=== PATIENT | female | born 1995 | race Two or more races ===

== ENCOUNTER 2024-03-10 18:02 | Emergency (ER) | payer OTHER ==
[2024-03-10 18:06] VITALS: RESP 20
[2024-03-10] MEDS: DEXAMETHASONE SOD PHOSPHATE 10 MG/ML 1 ML VIAL IM STA (18:55)
[2024-03-10] MEDS: LIDOCAINE VISCOUS 2% 15 ML CUP PO ONE (18:56)
--- NOTE | 2024-03-10 19:36 | ED ---
ENT HPI - General Chief complaint: ENT Stated complaint: Sore throat Time Seen by Provider: 03/10/24 18:08 Source: patient Mode of arrival: ambulatory Limitations: no limitations - History of Present Illness Initial comments: 29-year-old female presented with chief complaint of sore throat. Patient is concerned because she has significantly enlarged lymph nodes in her neck. She is having a lot of pain with swallowing, no difficulty breathing or dysphagia. Cough or congestion. No nausea vomiting or abdominal pain. No drooling or voice changes. She was seen at urgent care yesterday she had a negative strep swab, however she was still prescribed amoxicillin and is currently taking that. No fever. - Related Data Previous Rx's Medication Instructions Recorded methylPREDNISolone Dose Pack 4 mg PO DIRECTED #1 packet 03/10/24 [Medrol Dose Pack] Allergies Allergy/AdvReac Type Severity Reaction Status Date / Time No Known Allergies Allergy Verified 03/10/24 18:06 Review of Systems ROS Statement: Those systems with pertinent positive or pertinent negative responses have been documented in the HPI. ROS Other: All systems not noted in ROS Statement are negative. Past Medical History Past Medical History: No Reported History History of Any Multi-Drug Resistant Organisms: None Reported Past Surgical History: No Surgical Hx Reported Past Psychological History: No Psychological Hx Reported Smoking Status: Never smoker Past Alcohol Use History: Occasional Past Drug Use History: None Reported General Exam Limitations: no limitations General appearance: alert, in no apparent distress Head exam: Present: atraumatic, normocephalic, normal inspection Eye exam: Present: normal appearance, EOMI Expanded Throat exam: tonsillar erythema, tonsillomegaly, tonsillar exudate Neck exam: Present: normal inspection, lymphadenopathy. Absent: meningismus Respiratory exam: Absent: respiratory distress, stridor Cardiovascular Exam: Present: regular rate Neurological exam: Present: alert, oriented X3 Psychiatric exam: Present: normal affect, normal mood Skin exam: Present: warm, dry Course Vital Signs 03/10/24 03/10/24 18:04 21:54 Temperature 98.5 F 99.0 F Pulse Rate 85 78 Respiratory 20 20 Rate Blood Pressure 134/76 104/62 O2 Sat by Pulse 96 97 Oximetry Medical Decision Making - Medical Decision Making Was pt. sent in by a medical professional or institution (, PA, SPRING [employer]ING MACHINE [employer]TER, urgent care, hospital, or senior living...) When possible be specific @ -No Did you speak to anyone other than the patient for history (EMS, parent, family, police, friend...)? What history was obtained from this source @ -No Did you review nursing and triage notes (agree or disagree)? Why? @ -I reviewed and agree with nursing and triage notes Were old charts reviewed (outside hosp., previous admission, EMS record, old EKG, old radiological studies, urgent care reports/EKG's, senior living records)? Report findings @ -No old charts were reviewed Differential Diagnosis (chest pain, altered mental status, abdominal pain women, abdominal pain men, vaginal bleeding, weakness, fever, dyspnea, syncope, headache, dizziness, GI bleed, back pain, seizure, CVA, palpatations, mental health, musculoskeletal)? @ -Differential includes viral pharyngitis, strep pharyngitis, peritonsillar abscess, retropharyngeal abscess, not an all-inclusive list EKG interpreted by me (3pts min.). @ -As above X-rays interpreted by me (1pt min.). @ -X-ray shows some mild prominence of the tonsils, otherwise soft tissue neck is unremarkable CT interpreted by me (1pt min.). @ -None done U/S interpreted by me (1pt. min.). @ -None done What testing was considered but not performed or refused? (CT, X-rays, U/S, labs)? Why? @ -None What meds were considered but not given or refused? Why? @ -None Did you discuss the management of the patient with other professionals (professionals i.e. , PA, [employer]ING [employer]ING MACHINE SETTER, lab, RT, psych nurse, group social worker, claim clinician, teacher, senior escrow officer, pillowcase folder)? Give summary @ -No Was smoking cessation discussed for >3mins.? @ -No Was critical care preformed (if so, how long)? @ -No Were there social determinants of health that impacted care today? How? (Homelessness, low income, unemployed, alcoholism, drug addiction, transportation, low edu. Level, literacy, decrease access to med. care, fdc, rehab)? @ -No Was there de-escalation of care discussed even if they declined (Discuss DNR or withdrawal of care, Hospice)? DNR status @ -No What co-morbidities impacted this encounter? (DM, HTN, Smoking, COPD, CAD, Cancer, CVA, ARF, Chemo, Hep., AIDS, mental health diagnosis, sleep apnea, morbid obesity)? @ -None Was patient admitted / discharged? Hospital course, mention meds given and route, prescriptions, significant lab abnormalities, going to OR and other p ertinent info. @ -29-year-old female presenting with chief complaint of sore throat. She is also complaining that the lymph nodes in her neck are quite enlarged and uncomfortable. History and physical examination are conducted. Patient has enlarged and erythematous tonsils with exudate bilaterally. No midline shift. No stridor. No drooling or hot potato voice. She is given viscous lidocaine and Decadron. Heterophile is negative. She is negative for influenza, RSV, COVID, group A strep. Soft tissue neck x-ray is obtained which shows some prominence of the tonsils, otherwise no acute process. Patient is currently taking amoxicillin prescribed by urgent care. Patient is educated on today's findings and management plan. She can continue taking her amoxicillin. Prescribed Medrol Dosepak for swelling and discomfort. Follow-up with PCP. Report back to ER with any new or worsening symptoms. Discussed return parameters and answered all questions. Patient conveyed verbal understanding and agreed to the plan. I discussed this case in detail with my attending Dr. pacheco Undiagnosed new problem with uncertain prognosis? @ -No Drug Therapy requiring intensive monitoring for toxicity (Heparin, Nitro, Insulin, Cardizem)? @ -No Were any procedures done? @ -No Diagnosis/symptom? @ -Tonsillitis Acute, or Chronic, or Acute on Chronic? @ -Acute Uncomplicated (without systemic symptoms) or Complicated (systemic symptoms)? @ -Uncomplicated Side effects of treatment? @ -No Exacerbation, Progression, or Severe Exacerbation? @ -No Poses a threat to life or bodily function? How? (Chest pain, [place], MA, pneumonia, PE, COPD, DKA, ARF, appy, cholecystitis, CVA, Diverticulitis, Homicidal, Suicidal, threat to staff... and all critical care pts) @ -Unlikely - Lab Data Lab Results 03/10/24 03/10/24 03/10/24 Range/Units 18:48 18:50 18:50 Heterophile Antibody Negative (Negative) Influenza Type A (PCR) Not Detected (Not Detectd) Influenza Type B (PCR) Not Detected (Not Detectd) RSV (PCR) Not Detected (Not Detectd) SARS-CoV-2 (PCR) Not Detected (Not Detectd) Group A Strep (PCR) NOT DETECTED (Not Detectd) Disposition Clinical Impression: Tonsillitis Disposition: HOME SELF-CARE Condition: Good Instructions (If sedation given, give patient instructions): Tonsillitis (ED) Additional Instructions: Follow-up with PCP. Report back to ER with any new or worsening symptoms. Take Motrin Tylenol as needed for pain control. Take medication as prescribed. Prescriptions: methylPREDNISolone Dose Pack [Medrol Dose Pack] 4 mg PO DIRECTED #1 packet Is patient prescribed a controlled substance at d/c from ED?: No Referrals: Gurvinder Montero MD [Primary Care Provider] - 1-2 days Time of Disposition: 21:47
[2024-03-10 19:43] LABS: Influenza A Not Detected (Not Detectd); Influenza B Not Detected (Not Detectd); RSV Not Detected (Not Detectd)
--- NOTE | 2024-03-10 21:41 | XR ---
EXAMINATION TYPE: XR soft tissue neck DATE OF EXAM: 03/10/2024 8:21 PM COMPARISON: None. CLINICAL INDICATION: Female, 29 years old with history of throat pain, pain TECHNIQUE: 2 view(s) obtained. FINDINGS: Prevertebral space is normal. No radiopaque foreign bodies identified. Epiglottis appears normal. Sub glottic airway is unremarkable. There may be some prominence of the tonsils. IMPRESSION: 1. There may be some prominence of the tonsils. 2. Soft tissue neck otherwise appears unremarkable [facility], Workstation: [facility], 03/10/2024 9:39 PM
[2024-03-10 22:01] VITALS: BP 104/62; PULSE 78; TEMP 99
== END 2024-03-10 22:05 | disposition home or self-care (01) ==
LOC: EC 18:02
DX: J03.90 Acute tonsillitis, unspecified (principal)
CPT/HCPCS: 36415; 87651; 86308; 87636; 70360; 99283; 96372; J1100